=== PATIENT | female | born 1950 | race American Indian/Alaskan Native ===

== ENCOUNTER 2017-09-19 11:18 | Outpatient (CLI) | payer MEDICARE ==
--- NOTE | 2017-09-19 13:33 | Mammography Report ---
BILATERAL DIGITAL SCREENING MAMMOGRAM with CAD: 09/19/17 11:18:00 CLINICAL: Routine screening. COMPARISON:09/17/14 FINDINGS: There are bilateral scattered areas of fibroglandular density.A left outer parenchymal asymmetry is unchanged compared to the prior exam. No mass, architectural distortion or suspicious calcifications. IMPRESSION: No mammographic evidence of malignancy. BI-RADS CATEGORY: 2 -- Benign RECOMMENDATION: Routine mammographic screening in one year. COMMENT: Patient follow-up letters are generated by our [employer] application.
== END 2017-09-19 11:19 | disposition home or self-care (01) ==
LOC: MAMMO 11:18
PROVIDERS: ATTEND Internal Medicine
DX: Z12.31 Encounter for screening mammogram for malignant neoplasm of breast (principal)
CPT/HCPCS: 77067

== ENCOUNTER 2018-08-09 13:49 | Emergency (ER) | payer MEDICARE ==
[2018-08-09 14:14] VITALS: BP 168/81
--- NOTE | 2018-08-09 14:20 | Emergency Department Report ---
Blank Doc - Documentation Documentation: This is a 68-year-old female that presents with right knee pain s/p fall. Den ies any other pain or injuries. This initial assessment/diagnostic orders/clinical plan/treatment(s) is/are subject to change based on patient's health status, clinical progression and re- assessment by fellow clinical providers in the ED. Further treatment and workup at subsequent clinical providers discretion. Patient/guardians urged not to elope from the ED as their condition may be serious if not clinically assessed and managed. Initial orders include: 1- Patient sent to [facility] for further evaluation and treatment 2- xray
--- NOTE | 2018-08-09 15:05 | XRay Report ---
RIGHT KNEE, 3 views: History: Fall, pain, swelling. Mild osteopenia is evident. There is subtle deformity of the lateral tibial plateau which is concerning for a mildly displaced fracture. The remaining bony structures are intact. Moderate to large joint effusion is identified on the lateral view. IMPRESSION: Osteopenia. Lateral tibial plateau fracture is suspected. Consider further evaluation with CT. Hemarthrosis.
[2018-08-09] MEDS ORDERED: ULTRAM PO ONE (16:57)
--- NOTE | 2018-08-09 16:57 | Emergency Department Report ---
ED Lower Extremity HPI - General Chief Complaint: Extremity Injury, Lower Stated Complaint: (R) KNEE PAIN Time Seen by Provider: 08/09/18 14:18 Source: EMS Mode of arrival: Wheelchair Limitations: No Limitations - History of Present Illness Initial Comments: This is a 68-year-old [place] female who presents to the emergency room with pain and swelling to right knee. Past medical history of diabetes type 2, hypertension, rheumatoid arthritis, and osteoporosis. Patient states she was at home walking downstairs with a plastic basket full of meat and slipped and feel. Patient states he hit the right side of her knee and she can barely stand back up. She reports pain is 7 out of 10 on pain scale worse with weightbearing. Patient states she feel like her knee is going in opposite directions. She denies loss of consciousness, hitting head, numbness or tingling, weakness, or bruising. MD Complaint: knee injury -: This afternoon Injury: Knee: Right Type of Injury: unknown Place: home Severity: moderate Severity scale (0 -10): 7 Improves With: nothing Worsens With: weight bearing, movement Context: fall Associated Symptoms: snap/pop sensation, swelling, able to partially bear weight. denies: numbness, tingling Treatments Prior to Arrival: cold therapy - Related Data Previous Rx's Medication Instructions Recorded Last Taken Type traMADol [Ultram 50 MG tab] 50 mg PO Q6HR PRN #12 tablet 08/09/18 Unknown Rx Allergies Allergy/AdvReac Type Severity Reaction Status Date / Time No Known Allergies Allergy Unverified 09/17/14 08:22 ED Review of Systems ROS: Stated complaint: (R) KNEE PAIN Other details as noted in HPI Constitutional: denies: chills, fever Respiratory: denies: cough, shortness of breath, wheezing Cardiovascular: denies: chest pain, palpitations Gastrointestinal: denies: abdominal pain, nausea, diarrhea Musculoskeletal: arthralgia (right knee pain). denies: back pain, joint swelling Skin: denies: rash, lesions Neurological: denies: headache, weakness, paresthesias Psychiatric: denies: anxiety, depression ED Past Medical Hx - Past Medical History Previous Medical History?: Yes Hx Hypertension: Yes Hx Diabetes: Yes - Surgical History Past Surgical History?: No - Social History Smoking Status: Never Smoker Substance Use Type: None - Medications Home Medications: Home Medications Medication Instructions Recorded Confirmed Last Taken Type traMADol [Ultram 50 MG tab] 50 mg PO Q6HR PRN #12 tablet 08/09/18 Unknown Rx ED Physical Exam - General Limitations: No Limitations General appearance: alert, in no apparent distress - Respiratory Respiratory exam: Present: normal lung sounds bilaterally. Absent: respiratory distress - Cardiovascular Cardiovascular Exam: Present: regular rate, normal rhythm. Absent: systolic murmur, diastolic murmur, rubs, gallop - GI/Abdominal GI/Abdominal exam: Present: soft, normal bowel sounds - Expanded Lower Extremity Exam Right Hip exam: Present: normal inspection, full ROM Upper Leg exam: Present: normal inspection, full ROM Knee exam: Present: tenderness, swelling, pain/laxity with valgus, pain/laxity with varus, full knee extension. Absent: full ROM (genitalia range of motion secondary pain), abrasion, laceration, ecchymosis, deformity, crepidus Lower Leg exam: Present: normal inspection, full ROM Ankle exam: Present: normal inspection, full ROM Foot/Toe exam: Present: normal inspection, full ROM Neuro vascular tendon exam: Present: no vascular compromise Gait: Positive: observed and limited by pain - Neurological Exam Neurological exam: Present: alert, oriented X3 - Psychiatric Psychiatric exam: Present: normal affect, normal mood - Skin Skin exam: Present: warm, dry, intact, normal color. Absent: rash ED Course Vital Signs 08/09/18 08/09/18 08/09/18 14:13 17:11 18:11 Temperature 97.9 F Pulse Rate 95 H Respiratory 18 18 17 Rate Blood Pressure 168/81 O2 Sat by Pulse 100 Oximetry ED Lower Extremity MDM - Radiology Data Radiology results: report reviewed RIGHT KNEE, 3 views: History: Fall, pain, swelling. Mild osteopenia is evident. There is subtle deformity of the lateral tibial plateau which is concerning for a mildly displaced fracture. The remaining bony structures are intact. Moderate to large joint effusion is identified on the lateral view. IMPRESSION: Osteopenia. Lateral tibial plateau fracture is suspected. Consider further evaluation with CT. Hemarthrosis. - Medical Decision Making Patient was examined by me. Vitals are normal and patient is in no acute distress. Obtained a x-ray of right knee. X-rays dictated by radiologist and report reviewed by myself. Osteopenia. Lateral tibial plateau fracture is suspected. Consider further evaluation with CT. Hemarthrosis. Consulted the attending, Dr. Alves. I made several attempts to consult Orthopedics Dr. Boyer with no results. A knee immobilizer applied to the right knee. Consulted Dr. Juan V review chart and patient is stable to go home with nonweightbearing and crutches. Patient informed of results. Patient given crutches and education. Start tramadol for pain. Patient given CD referrals to orthopedics. She was discharged home stable. Critical care attestation.: If time is entered above; I have spent that time in minutes in the direct care of this critically ill patient, excluding procedure time. ED Disposition Clinical Impression: Right knee pain Qualifiers: Chronicity: acute Qualified Code(s): M25.561 - Pain in right knee Fractured tibia Qualifiers: Encounter type: initial encounter Tibia location: proximal Fracture type: closed Fracture morphology: unspecified fracture morphology Laterality: right Qualified Code(s): S82.101A - Unspecified fracture of upper end of right tibia, initial encounter for closed fracture Disposition: TO HOME OR SELFCARE Is pt being admited?: No Does the pt Need Aspirin: No Condition: Stable Instructions: Arthralgia (ED), Patellar Fracture (ED) Additional Instructions: Remain nonweight bearing to right lower extremity. Use crutches to assist in walking. Take pain medication every 6-8 hours as needed for pain. It is important to follow-up with orthopedic surgeon as discussed. I have provided referrals to orthopedic surgeons below. Prescriptions: traMADol [Ultram 50 MG tab] 50 mg PO Q6HR PRN #12 tablet PRN Reason: Pain Referrals: DAIJA JOHANSEN MD [Primary Care Provider] - 3-5 Days BEVERLEY BOYER MD [Staff Physician] - 3-5 Days [facility] [Provider Group] - 3-5 Days [facility], [Provider Group] - 3-5 Days Time of Disposition: 19:13
== END 2018-08-09 19:30 | disposition home or self-care (01) ==
LOC: ED 13:49
DX: S82.141A Displaced bicondylar fracture of right tibia, initial encounter for closed fracture (principal); I10 Essential (primary) hypertension; M06.9 Rheumatoid arthritis, unspecified; E11.9 Type 2 diabetes mellitus without complications; W18.01XA Striking against sports equipment with subsequent fall, initial encounter; Y93.01 Activity, walking, marching and hiking; Y92.098 Other place in other non-institutional residence as the place of occurrence of the external cause; Y99.8 Other external cause status

== ENCOUNTER 2020-06-22 11:19 | Outpatient (CLI) | payer MEDICARE ==
--- NOTE | 2020-06-22 14:21 | Vascular Lab Report ---
DUPLEX DOPPLER LOWER EXTREMITY VEINS, BILATERAL INDICATION / CLINICAL INFORMATION: ABNORMAL COAGULATION. TECHNIQUE: Duplex doppler imaging was performed through the veins of both lower extremities using venous darlene marty and other maneuvers. COMPARISON: None available. FINDINGS: Right Common Femoral vein: Negative. Right Femoral vein: Negative. Right Popliteal vein: Negative. Right Calf veins: Negative. Left Common Femoral vein: Negative. Left Femoral vein: Negative. Left Popliteal vein: Negative. Left Calf veins: Negative. Additional findings: None. IMPRESSION: 1. No sonographic evidence for DVT in either lower extremity. Signer Name: Doug Lucero MD Signed: 06/22/2020 2:16 PM Workstation Name: [email or web address]
== END 2020-06-22 11:20 | disposition home or self-care (01) ==
LOC: VAS 11:19
PROVIDERS: ATTEND Internal Medicine
DX: R79.1 Abnormal coagulation profile (principal)
CPT/HCPCS: 93970

== ENCOUNTER 2020-06-25 07:45 | Outpatient (CLI) | payer MEDICARE ==
--- NOTE | 2020-06-25 09:21 | Ultrasound Report ---
ULTRASOUND PELVIS COMPLETE INDICATION / CLINICAL INFORMATION: ELEVATED CANCER ANTIGEN CA 125 R97.1. TECHNIQUE: Transabdominal. Duplex Color Doppler used: Yes. COMPARISON: None available FINDINGS: UTERUS: Present. - Appearance (if present): The uterus is anteverted and slightly heterogeneous echotexture. - Size in cm (if present): 8.6 x 3.1 x 5.6. - Endometrial Complex (if present): No significant abnormality.. Thickness in cm (if measured) = 0.4 - Mass lesions: An approximate 2.6 x 2.6 x 2.2 cm fibroid is identified in the anterior wall to the l eft of midline. - Additional findings: None. RIGHT ADNEXA: A 1.2 cm right ovarian cyst is identified. Normal color Doppler blood flow. The right o vary measures 2.8 x 1.2 x 2.5 cm. LEFT ADNEXA: The left ovary is not visualized. No obvious left adnexal abnormality. URINARY BLADDER: No significant abnormality. FREE FLUID: None. ADDITIONAL FINDINGS: None. IMPRESSION: Mild uterine fibroid disease as described. The endometrium is unremarkable on transabdominal imaging. 1.2 cm right ovarian cyst. The left ovary is not clearly visualized. Signer Name: Serge Pearce Jr, MD Signed: 06/25/2020 9:17 AM Workstation Name: [id number]
== END 2020-06-25 07:46 | disposition home or self-care (01) ==
LOC: US 07:45
PROVIDERS: ATTEND Internal Medicine
DX: D25.9 Leiomyoma of uterus, unspecified (principal); N83.291 Other ovarian cyst, right side; R97.1 Elevated cancer antigen 125 [CA 125]
CPT/HCPCS: 76856

== ENCOUNTER 2021-05-27 10:35 | Emergency (ER) | payer MEDICARE | END 2021-05-27 12:00 | disposition left against medical advice (07) | LOC: ED 10:35 | DX: Z00.00 Encounter for general adult medical examination without abnormal findings (principal); Z53.21 Procedure and treatment not carried out due to patient leaving prior to being seen by health care provider; W19.XXXA Unspecified fall, initial encounter; Y93.89 Activity, other specified; Y92.89 Other specified places as the place of occurrence of the external cause; Y99.8 Other external cause status ==

== ENCOUNTER 2021-06-10 08:10 | Outpatient (CLI) | payer MEDICARE ==
--- NOTE | 2021-06-10 09:32 | XRay Report ---
CHEST 2 VIEWS INDICATION: SOB R06.02. COMPARISON: none FINDINGS: Support devices: None. Heart: Within normal limits. Lungs/pleura: No acute air space or interstitial disease. No pneumothorax. Additional findings: None. IMPRESSION: No acute findings. Signer Name: Serge Pearce Jr, MD Signed: 06/10/2021 9:28 AM Workstation Name: [id number]
== END 2021-06-10 08:11 | disposition home or self-care (01) ==
LOC: MAMMO 08:10
PROVIDERS: ATTEND Internal Medicine
DX: Z12.31 Encounter for screening mammogram for malignant neoplasm of breast (principal); R06.02 Shortness of breath
CPT/HCPCS: 71046; 77067